=== PATIENT | female | born 1940 | race Hispanic/Latino ===

== ENCOUNTER 2023-12-04 17:50 | Emergency (ER) | payer MEDICARE ==
[~2023-12-04] VITALS: Ht 144.8 cm; Wt 71.7 kg
[2023-12-04 18:59] VITALS: PULSE 88; RESP 20; TEMP 98
[2023-12-04] MEDS ORDERED: MULTIVITAMINS1 EAC6 PO (19:16)
[2023-12-04] MEDS ORDERED: OMEPRAZOLE40 MG PO (19:16)
[2023-12-04] MEDS: ACETAMINOPHEN 325 MG TAB PO ONE (21:10)
[2023-12-04] MEDS ORDERED: PAXLOVID 300-11 EAC1 PO (21:46)
[2023-12-04 22:49] VITALS: BP 140/82; PULSE 83; RESP 16; TEMP 98.5; O2SAT 98
== END 2023-12-04 22:18 | disposition home or self-care (01) ==
LOC: FSED 17:58
DX: R05.9 Cough, unspecified (principal); U07.1 COVID-19; B34.9 Viral infection, unspecified; K21.9 Gastro-esophageal reflux disease without esophagitis; E66.9 Obesity, unspecified
CPT/HCPCS: 0223U; 71046; 87400; 99283